=== PATIENT | female | born 1995 | race Caucasian/White ===

== ENCOUNTER 2020-04-01 10:39 | Emergency (ER) | payer SELFPAY ==
[2020-04-01 11:00] LABS: ABSOLUTE BASOPHILS # (AUTO) 0.1 10^3/uL (0.0-0.2); ABSOLUTE EOSINOPHILS # (AUTO) 0.1 10^3/uL (0.0-0.6); ABSOLUTE LYMPHOCYTES (AUTO) 3.9 10^3/uL (0.5-4.7); ABSOLUTE MONOCYTES (AUTO) 0.7 10^3/uL (0.1-1.4); ABSOLUTE NEUT (AUTO) 10.4 10^3/uL (1.7-8.2); BASOPHILS % (AUTO) 0.3 % (0-2); EOSINOPHILS % (AUTO) 0.6 % (0-6); HEMATOCRIT 36.1 % (36.0-47.0); HEMOGLOBIN 12.1 g/dL (12.0-15.5); LYMPHOCYTES % (AUTO) 25.5 % (13-45); MEAN CORPUSCULAR HGB CONC 33.4 g/dL (32.0-36.0); MEAN CORPUSCULAR VOLUME 81 fl (80-97); MONOCYTES % (AUTO) 4.6 % (3-13); PLATELET COUNT 447 10^3/uL (150-450); RED BLOOD COUNT 4.47 10^6/uL (3.72-5.28); RED CELL DISTRIBUTION WIDTH 15.2 % (11.5-14.0); TOTAL CELLS COUNTED % (AUTO) 100 %; WHITE BLOOD COUNT 15.1 10^3/uL (4.0-10.5)
[2020-04-01 11:19] LABS: ALBUMIN 4.2 g/dL (3.5-5.0); ALKALINE PHOSPHATASE 80 U/L (38-126); ANION GAP 10 (5-19); ASPARTATE AMINO TRANSFERASE 23 U/L (14-36); BILIRUBIN,TOTAL 0.8 mg/dL (0.2-1.3); BLOOD UREA NITROGEN 7 mg/dL (7-20); CALCIUM 9.7 mg/dL (8.4-10.2); CARBON DIOXIDE 19 mmol/L (22-30); CHLORIDE 107 mmol/L (98-107); CREATINE KINASE 146 U/L (30-135); GLUCOSE 91 mg/dL (75-110); TOTAL PROTEIN 7.7 g/dL (6.3-8.2)
[2020-04-01 11:32] LABS: INTERNATIONAL RATION (INR) 1.06; PROTHROMBIN TIME 13.8 SEC (11.4-15.4)
[2020-04-01 11:35] LABS: D-DIMER 0.45 ug/mL (0.00-0.50)
[2020-04-01 11:37] LABS: CREATINE KINASE MB 0.55 ng/mL (<4.55)
--- NOTE | 2020-04-01 11:38 | RADIOLOGY REPORT (SQ) ---
EXAM DESCRIPTION: CHEST SINGLE VIEW IMAGES COMPLETED DATE/TIME: 04/01/2020 11:28 am REASON FOR STUDY: chest pain, SOB COMPARISON: None. EXAM PARAMETERS: NUMBER OF VIEWS: One view. TECHNIQUE: Single frontal radiographic view of the chest acquired. RADIATION DOSE: NA LIMITATIONS: None. FINDINGS: LUNGS AND PLEURA: No opacities, masses or pneumothorax. No pleural effusion. MEDIASTINUM AND HILAR STRUCTURES: No masses. Contour normal. HEART AND VASCULAR STRUCTURES: Borderline cardiomegaly. Normal vasculature. BONES: No acute findings. HARDWARE: None in the chest. OTHER: No other significant finding. IMPRESSION: 1. No acute pulmonary findings. 2. Borderline cardiomegaly. No evidence for failure. TECHNICAL DOCUMENTATION: JOB ID: [id number] 2010 [employer]- All Rights Reserved Reading location - IP/workstation name: [email or web address]
[2020-04-01 11:40] LABS: TROPONIN I < 0.012 ng/mL
[2020-04-01] MEDS ORDERED: LIDOCAINE 2% VISCOUS SOLN 15 ML UDCUP PO ONE (11:43)
[2020-04-01] MEDS ORDERED: PROCHLORPERAZINE MALEATE 10 MG TABLET PO ONE (11:43)
[2020-04-01] MEDS ORDERED: MAG HYDROX/AL HYDROX/SIMETH SUSP 30 ML UDCUP PO ONE (11:43)
--- NOTE | 2020-04-01 12:34 | ER Document Report ---
Entered by ANANTH RICO SCRIBE 04/01/20 1118 Acting as scribe for:SCAR RODRIGUEZ MD ED General - General Chief Complaint: Chest Pain Stated Complaint: SHORTNESS OF BREATH Time Seen by Provider: 04/01/20 11:12 Primary Care Provider: [facility] [Provider Group] - Follow up in 3-5 days Mode of Arrival: Ambulatory Information source: Patient Notes: This 25 year old female patient presents to the emergency department today com plaining of shortness of breath, chest pain, vomiting, a headache, and abdominal pain which she associates with marijuana that she smoked yesterday just prior to these symptoms beginning. Patient mentions a history of possible PE but when reviewing history with the patient this does not seem to be accurate. Patient had an abnormal V/Q scan in October 2019 in [place], a follow-up CTA was performed without emboli and and she was not anticoagulated. Patient states that it does not hurt when she b reathes today. - Related Data Allergies/Adverse Reactions: ibuprofen Allergy (Verified 04/01/20 13:24) iodine Allergy (Verified 04/01/20 10:56) Past Medical History - General Information source: Patient - Social History Smoking Status: Current Every Day Smoker Cigarette use (# per day): Yes Frequency of alcohol use: Social Drug Abuse: Marijuana Lives with: Family Family History: Reviewed & Not Pertinent Patient has homicidal ideation: No Pulmonary Medical History: Reports: Other - Abnormal VQ scan in Oct 2019 followed up with a negative CTA Surgical Hx: Negative Review of Systems - Review of Systems Constitutional: No symptoms reported EENT: No symptoms reported Cardiovascular: No symptoms reported Respiratory: See HPI, Short of breath. denies: Hurts to breathe Gastrointestinal: See HPI, Abdominal pain, Vomiting Genitourinary: No symptoms reported Female Genitourinary: See HPI, Last menstrual period - 03/11 Musculoskeletal: No symptoms reported Skin: No symptoms reported Hematologic/Lymphatic: No symptoms reported Neurological/Psychological: See HPI, Headaches -: Yes All other systems reviewed and negative Physical Exam - Vital signs Vitals: Temp Pulse Resp BP Pulse Ox 98.6 F 63 22 H 126/83 H 98 04/01/20 10:52 04/01/20 10:52 04/01/20 10:52 04/01/20 10:52 04/01/20 10:52 - Notes Notes: Physical Exam: General: Alert, appears well. HEENT: Normocephalic. Atraumatic. PERRL. Extraocular movements intact. Oropharynx clear. Neck: Supple. Posterior cervical musculature tenderness to palpation right greater than left. Respiratory: No respiratory distress. Clear and equal breath sounds bilaterally. Anterior chest wall tenderness to palpation. Cardiovascular: Regular rate and rhythm. Abdominal: Obese, mild epigastric tendnerness to palpation. No distension. Normal Bowel Sounds. Back: No gross abnormalities. Extremities: Moves all four extremities. Upper extremities: Normal inspection. Normal ROM. Lower extremities: Normal inspection. No edema. Normal ROM. Neurological: Normal cognition. AAOx4. Normal speech. Psychological: Normal affect. Normal Mood. Skin: Warm. Dry. Normal color. Course - Re-evaluation Re-evalutation: 04/01/20 13:12 At this time the patient states the GI cocktail did not help her upper abdomen discomfort at all, and states it caused the rest of her abdomen to start hurting. She is now sitting up on the bed and rocking back and forth. Reexam shows diffuse tenderness throughout her abdomen including the previously tender epigastric region. Patient denies history of previous episodes of abdominal cramps, pain, and throwing up. 04/01/20 20:[address] scan of the abdomen and pelvis suggest a cecal mass and some nonspecific lymph node inflammation(see the report) I suspect the patient's elevated WBC count on presentation was related to the nausea and vomiting, as there is no CT findings to suggest an infectious process that would cause a leukocytosis. - Vital Signs Vital signs: Temp Pulse Resp BP Pulse Ox 98.6 F 63 22 H 126/83 H 98 04/01/20 10:57 04/01/20 10:52 04/01/20 10:52 04/01/20 10:52 04/01/20 10:52 - Laboratory Result Diagrams: 04/01/20 10:50 04/01/20 10:50 Laboratory results interpreted by me: 04/01/20 04/01/20 10:50 10:50 WBC 15.1 H RDW 15.2 H Absolute Neuts (auto) 10.4 H Sodium 135.6 L Carbon Dioxide 19 L Creatine Kinase 146 H - Diagnostic Test Radiology reviewed: Image reviewed, Reports reviewed - Chest x-ray shows borderline cardiomegaly, otherwise unremarkable. Noncontrast CT scan of the abdomen pelvis shows suspected short segment ileocolic intussusception. Orflorentino contrast CT scan abdomen pelvis shows a soft tissue masslike density suggested within the lumen of the cecum. - EKG Interpretation by Me EKG shows normal: Sinus rhythm, Muse, Intervals, QRS Complexes, ST-T Waves Rate: Normal - 57 Rhythm: NSR - Consults Dr. Calle Time consulted: 15:20 Consulted provider: will come to ER Discharge - Discharge Clinical Impression: Cecum mass, Tension headache Nausea and vomiting Qualifiers: Vomiting type: unspecified Vomiting Intractability: non-intractable Qualified Code(s): R11.2 - Nausea with vomiting, unspecified Abdominal pain Qualifiers: Abdominal location: generalized Qualified Code(s): R10.84 - Generalized abdominal pain Condition: Stable Disposition: HOME, SELF-CARE Additional Instructions: Your evaluation today showed the appearance of a soft tissue mass in the first part of the large intestine called the cecum. This should be further evaluated by colonoscopy. Your other symptoms included tension headache, and nausea and vomiting. You should stay on a light diet with plenty of fluids for the next few days. [facility] staff should call you tomorrow to set up an appointment to schedule your colonoscopy. Call the office tomorrow afternoon if you have not heard from them. RETURN TO THE EMERGENCY ROOM IF ANY NEW OR WORSENING SYMPTOMS. Referrals: [facility] [Provider Group] - Follow up in 3-5 days I personally performed the services described in the documentation, reviewed and edited the documentation which was dictated to the scribe in my presence, and it accurately records my words and actions.
[2020-04-01] MEDS ORDERED: NORMAL SALINE 1000 ML 1,000 ML IV ONE (13:13)
[2020-04-01] MEDS ORDERED: ONDANSETRON HCL INJ/PF 4 MG/2 ML SDV IV ONE (13:13)
[2020-04-01] MEDS ORDERED: PANTOPRAZOLE SODIUM 40 MG VIAL IV ONE (13:14)
--- NOTE | 2020-04-01 14:15 | RADIOLOGY REPORT (SQ) ---
EXAM DESCRIPTION: CT ABD/PELVIS NO ORAL OR IV IMAGES COMPLETED DATE/TIME: 04/01/2020 1:37 pm REASON FOR STUDY: Diffuse abdominal pain with nausea and vomiting COMPARISON: None. TECHNIQUE: CT scan of the abdomen and pelvis performed without intravenous or oral contrast. Images reviewed with lung, soft tissue, and bone windows. Reconstructed coronal and sagittal MPR images revi ewed. All images stored on PACS. All CT scanners at this facility use dose modulation, iterative reconstruction, and/or weight based d osing when appropriate to reduce radiation dose to as low as reasonably achievable (ALARA). [facility]: Dose Right [facility]: CareDose [facility]: Dose Right [facility]: Teradose 4D [facility]: [employer] RADIATION DOSE: mGy. LIMITATIONS: None. FINDINGS: LOWER CHEST: No significant findings. No nodules or infiltrates. NON-CONTRASTED LIVER, SPLEEN, ADRENALS: Evaluation limited by lack of IV contrast. No identified sign ificant masses. PANCREAS: No masses. No peripancreatic inflammatory changes. GALLBLADDER: Surgically absent. RIGHT KIDNEY AND URETER: No suspicious masses. Assessment limited by lack of IV contrast. No signif icant calcifications. No hydronephrosis or hydroureter. LEFT KIDNEY AND URETER: No suspicious masses. Assessment limited by lack of IV contrast. No signifi cant calcifications. No hydronephrosis or hydroureter. AORTA AND RETROPERITONEUM: No aneurysm. No retroperitoneal mass. Shotty mesenteric retroperitoneal nodes without discrete adenopathy. BOWEL AND PERITONEAL CAVITY: Apparent short-segment ileocolic intussusception. No evidence of intest inal obstruction. No free intraperitoneal gas. Trace free fluid within the pelvis, likely physiolog ic. APPENDIX: Normal. PELVIS, BLADDER, AND ABDOMINAL WALL:Decompressed urinary bladder. No pelvic adenopathy or mass. BONES: No significant findings. OTHER: No other significant finding. IMPRESSION: 1. Apparent short-segment ileocolic intussusception which can often be an incidental fi nding. Recommend correlation with patient symptoms. No evidence of intestinal obstruction. 2. No other evidence of acute intra-abdominal/pelvic process. COMMENT: Quality ID # 436: Final reports with documentation of one or more dose reduction techniques (e.g., Automated exposure control, adjustment of the mA and/or kV according to patient size, use of iterative reconstruction technique) TECHNICAL DOCUMENTATION: JOB ID: [id number] [employer]- All Rights Reserved Reading location - IP/workstation name: [email or web address]
--- NOTE | 2020-04-01 17:07 | PDOC CONSULTATION ---
Consultation Consult Date: 04/01/20 Attending physician:: SCAR sorenson Provider Consulted: BRADLEY MCFADDEN Consult reason:: Abdominal pain History of Present Illness History of Present Illness: INDRA FRANK is a 25 year old female Presents to the emergency department via ground rescue complaining of acute onset headache, nausea, chest tightness, shortness of breath and anorexia after smoking marijuana yesterday. Patient was seen via ground rescue, brought to the emergency department early this morning where she was found to have stable vital signs. She was not hypoxic and hemodynamically stable. She was given GI cocktail without clinical improvement she also received Zofran. She had a CT scan of the abdomen and pelvis without oral or IV contrast and this showed possible small segment intussusception of the terminal ileum into the right colon. Pressure was consulted. Patient states she feels better, no anorexia nausea but still having some abdominal pain. Past Medical History Past Medical History: Alleged history of PE based on VQ scan, subsequently redacted following surveillance CT scan which was negative. This was in October 2019 Pulmonary Medical History: Reports: Other - Abnormal VQ scan in Oct 2019 followed up with a negative CTA Past Surgical History Past Surgical History: Cholecystectomy Past Surgical History: Reports: Cholecystectomy Social History Lives with: Family Smoking Status: Current Every Day Smoker Electronic Cigarette use?: Yes Family History Family History: None, Reviewed & Not Pertinent Parental Family History Reviewed: No Children Family History Reviewed: No Sibling(s) Family History Reviewed.: No Medication/Allergy Allergies/Adverse Reactions: ibuprofen Allergy (Verified 04/01/20 13:24) iodine Allergy (Verified 04/01/20 10:56) Review of Systems Constitutional: PRESENT: as per HPI Eyes: ABSENT: visual disturbances Ears: ABSENT: hearing changes Cardiovascular: PRESENT: as per HPI Gastrointestinal: PRESENT: as per HPI Genitourinary: ABSENT: dysuria, hematuria Musculoskeletal: ABSENT: joint swelling Integumentary: ABSENT: rash, wounds Neurological: ABSENT: abnormal gait, abnormal speech, confusion, dizziness, focal weakness, syncope Endocrine: ABSENT: cold intolerance, heat intolerance, polydipsia, polyuria Physical Exam Vital Signs: Temp Pulse Resp BP Pulse Ox 98.6 F 63 22 H 126/83 H 98 04/01/20 10:57 04/01/20 10:52 04/01/20 10:52 04/01/20 10:52 04/01/20 10:52 Intake & Output 03/31/20 04/01/20 04/02/20 06:59 06:59 06:59 Intake Total 1000 Balance 1000 Weight 108.862 kg General appearance: PRESENT: no acute distress Head exam: PRESENT: atraumatic Eye exam: PRESENT: EOMI Ear exam: PRESENT: normal external ear exam Mouth exam: PRESENT: dry mucosa Neck exam: PRESENT: full ROM Respiratory exam: PRESENT: clear to auscultation kasie Cardiovascular exam: PRESENT: RRR Pulses: PRESENT: normal carotid pulses, normal radial pulses, normal femoral pulses GI/Abdominal exam: PRESENT: soft - Soft but tender right lower quadrant with minimal guarding to deep palpation. No peritoneal signs no rigidity. Rectal exam: PRESENT: deferred Extremities exam: PRESENT: full ROM Musculoskeletal exam: PRESENT: full ROM Neurological exam: PRESENT: oriented to person, oriented to place, oriented to time, oriented to situation Psychiatric exam: PRESENT: appropriate affect Skin exam: PRESENT: dry Results Laboratory Results: 04/01/20 10:50 04/01/20 10:50 04/01/20 04/01/20 04/01/20 10:50 10:50 10:50 WBC 15.1 H RBC 4.47 Hgb 12.1 Hct 36.1 MCV 81 MCH 27.0 MCHC 33.4 RDW 15.2 H Plt Count 447 Seg Neutrophils % 69.0 Sodium 135.6 L Potassium 4.0 Chloride 107 Carbon Dioxide 19 L Anion Gap 10 BUN 7 Creatinine 0.74 Est GFR ( Amer) > 60 Glucose 91 Calcium 9.7 Total Bilirubin 0.8 AST 23 Alkaline Phosphatase 80 Total Protein 7.7 Albumin 4.2 Serum HCG, Qual NEGATIVE 04/01/20 04/01/20 04/01/20 10:50 10:50 13:31 Creatine Kinase 146 H CK-MB (CK-2) 0.55 Troponin I < 0.012 < 0.012 Impressions: Chest X-Ray 04/01/20 10:56 IMPRESSION: 1. No acute pulmonary findings. 2. Borderline cardiomegaly. No evidence for failure. Abdomen/Pelvis CT 04/01/20 13:15 IMPRESSION: 1. Apparent short-segment ileocolic intussusception which can often be an incidental finding. Recommend correlation with patient symptoms. No evidence of intestinal obstruction. 2. No other evidence of acute intra-abdominal/pelvic process. Assessment & Plan - Diagnosis (1) Abdominal pain Is this a current diagnosis for this admission?: Yes Plan: Impression: Unusual presentation of headache, chest pain, nausea, anorexia, abdominal tenderness, leukocytosis and CT scan suggesting ileocolonic intussusception in an otherwise healthy 25-year-old female. The patient does not have an acute abdomen at this time. Recommendations: 1. I reviewed the imaging studies with the emergency department and radiologist. The abnormality involving the ileocolonic area to be an incidental finding or may be pathologic; there are several lymph nodes noted in the region. She may have a physiologic intussusception. Currently no evidence of sepsis, acute abdomen, in need of emergent exploration. 2. Patient seems to be feeling better. I suggest we get a CT scan with oral contrast to better delineate this area. The oral contrast may serve as a cathartic and open this area up. If not, patient may require admission, and exploratory surgery. 3. I have discussed the above with the patient. She is willing to stay here in the emergency department for further evaluation. (2) Obesity Is this a current diagnosis for this admission?: Yes (3) Smoker Is this a current diagnosis for this admission?: Yes (4) Leukocytosis Is this a current diagnosis for this admission?: Yes - Time Time Spent: 30 to 50 Minutes Smoking Cessation Education: over 10 minutes Medications reviewed and adjusted accordingly: Yes Anticipated discharge: Home
--- NOTE | 2020-04-01 19:07 | RADIOLOGY REPORT (SQ) ---
EXAM DESCRIPTION: CT ABD/PELVIS ORAL ONLY IMAGES COMPLETED DATE/TIME: 04/01/2020 6:36 pm REASON FOR STUDY: Suspect ileocolic intussusception COMPARISON: 04/01/2020 TECHNIQUE: CT scan of the abdomen and pelvis performed without intravenous or oral contrast. Images reviewed with lung, soft tissue, and bone windows. Reconstructed coronal and sagittal MPR images revi ewed. All images stored on PACS. All CT scanners at this facility use dose modulation, iterative reconstruction, and/or weight based d osing when appropriate to reduce radiation dose to as low as reasonably achievable (ALARA). [facility]: Dose Right [facility]: CareDose [facility]: Dose Right [facility]: Teradose 4D [facility]: [employer] RADIATION DOSE: CT Rad equipment meets quality standard of care and radiation dose reduction techniq ues were employed. CTDIvol: 18.7 mGy. DLP: 1065 mGy-cm. LIMITATIONS: None. FINDINGS: LOWER CHEST: Minimal pleural nodularity in the lower hemithoraces. NON-CONTRASTED LIVER, SPLEEN, ADRENALS: Evaluation limited by lack of IV contrast. No identified sign ificant masses. PANCREAS: No masses. No peripancreatic inflammatory changes. GALLBLADDER: Prior cholecystectomy. RIGHT KIDNEY AND URETER: No suspicious masses. Assessment limited by lack of IV contrast. No signif icant calcifications. No hydronephrosis or hydroureter. LEFT KIDNEY AND URETER: No suspicious masses. Assessment limited by lack of IV contrast. No signifi cant calcifications. No hydronephrosis or hydroureter. AORTA AND RETROPERITONEUM: Several nonenlarged mesenteric and retroperitoneal lymph nodes. BOWEL AND PERITONEAL CAVITY: The colon is incompletely distended with oral contrast limiting the exa mination somewhat. As best noted on axial images 55-57, series 3, soft tissue mass-like density sugg ested within the lumen of the cecum--ascending colon. No evidence of obstruction. This area does no t demonstrate a telescoping type of appearance. The cecum is unremarkable in appearance. The append ix is opacified with contrast and is unremarkable in appearance. No free fluid. APPENDIX: Normal. PELVIS, BLADDER, AND ABDOMINAL WALL: Very small fat containing periumbilical hernia. No free fluid. Bladder normal. BONES: No significant findings. OTHER: Borderline to mildly prominent bilateral superficial femoral triangle lymph nodes. IMPRESSION: 1. The colon is incompletely distended with oral contrast limiting the examination some what. Soft tissue mass-like density is suggested within the lumen of the cecum--ascending colon. Th e possibility of underlying mass is not entirely excluded. Clinical correlation correlation and wesley elation with colonoscopy suggested. (The results of this examination were discussed with the general surgeon on 04/01/2020 at 18:55 hours). 2. Several non-enlarged mesenteric and retroperitoneal lymph nodes. Borderline to mildly prominent bilateral superficial femoral triangle lymph nodes. Considerations for these findings include possib le inflammatory/infectious etiologies, with other underlying pathology not entirely excluded. 3. Additional findings as above. COMMENT: Quality ID # [id number]: Final reports with documentation of one or more dose reduction techniques (e.g., Automated exposure control, adjustment of the mA and/or kV according to patient size, use of iterative reconstruction technique) TECHNICAL DOCUMENTATION: JOB ID: [id number] 2010 [employer]- All Rights Reserved Reading location - IP/workstation name: [email or web address]
[2020-04-01 21:17] VITALS: BP 139/85
== END 2020-04-01 20:35 | disposition home or self-care (01) ==
LOC: ER 10:39
DX: G44.209 Tension-type headache, unspecified, not intractable (principal); K63.9 Disease of intestine, unspecified; R10.84 Generalized abdominal pain; R11.2 Nausea with vomiting, unspecified; R07.9 Chest pain, unspecified; R06.02 Shortness of breath; R10.9 Unspecified abdominal pain; F12.10 Cannabis abuse, uncomplicated; Z88.8 Allergy status to other drugs, medicaments and biological substances; F17.210 Nicotine dependence, cigarettes, uncomplicated
CPT/HCPCS: 99285; 96361; 96374; 96375; 36415; 82553; 82550; 84703; 85025; 85610; 80053; 84484; 85379; 71045; 74176; J3490; C9113; S0183; J2405; J7030

== ENCOUNTER 2020-04-27 10:14 | Emergency (ER) | payer SELFPAY | END 2020-04-27 10:54 | disposition left against medical advice (07) | LOC: ER 10:14 | DX: Z53.21 Procedure and treatment not carried out due to patient leaving prior to being seen by health care provider (principal) ==

== ENCOUNTER 2020-07-28 11:43 | Emergency (ER) | payer OTHER ==
[2020-07-28 11:52] VITALS: BP 123/67
[2020-07-28] MEDS ORDERED: METHYLPREDNISOLONE INJ 125 MG/2 ML SDV IM ONE (12:19)
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
== END 2020-07-28 12:30 | disposition home or self-care (01) ==
LOC: ER 11:43
DX: M54.32 Sciatica, left side (principal); M62.830 Muscle spasm of back; M54.9 Dorsalgia, unspecified; F17.200 Nicotine dependence, unspecified, uncomplicated; F12.10 Cannabis abuse, uncomplicated; Z87.828 Personal history of other (healed) physical injury and trauma; Z98.890 Other specified postprocedural states
CPT/HCPCS: 99284; 96372; J2930

== ENCOUNTER 2020-08-05 02:01 | Emergency (ER) | payer OTHER ==
[2020-08-05] MEDS ORDERED: FAMOTIDINE INJ/PF 20 MG/2 ML SDV IV ONE (02:32)
[2020-08-05] MEDS ORDERED: ONDANSETRON HCL INJ/PF 4 MG/2 ML SDV IV ONE (02:32)
[2020-08-05] MEDS ORDERED: NORMAL SALINE 1000 ML 1,000 ML IV ONE (02:32)
[2020-08-05 03:07] LABS: ALKALINE PHOSPHATASE 71 U/L (38-126); ANION GAP 11 (5-19); ASPARTATE AMINO TRANSFERASE 24 U/L (14-36); BILIRUBIN,DIRECT 0.2 mg/dL (0.0-0.4); BILIRUBIN,TOTAL 0.4 mg/dL (0.2-1.3); BLOOD UREA NITROGEN 9 mg/dL (7-20); CALCIUM 9.2 mg/dL (8.4-10.2); CARBON DIOXIDE 23 mmol/L (22-30); CHLORIDE 107 mmol/L (98-107); GLUCOSE 108 mg/dL (75-110); POTASSIUM 3.7 mmol/L (3.6-5.0)
[2020-08-05 03:22] LABS: HEMATOCRIT 33.3 % (36.0-47.0); MEAN CORPUSCULAR HEMOGLOBIN 26.8 pg (27.0-33.4); MEAN CORPUSCULAR HGB CONC 33.1 g/dL (32.0-36.0); MEAN CORPUSCULAR VOLUME 81 fl (80-97); PLATELET COUNT 414 10^3/uL (150-450); RED BLOOD COUNT 4.11 10^6/uL (3.72-5.28); RED CELL DISTRIBUTION WIDTH 15.2 % (11.5-14.0); WHITE BLOOD COUNT 21.9 10^3/uL (4.0-10.5)
[2020-08-05 03:36] LABS: ABSOLUTE MONOCYTES # (MANUAL) 0.4 10^3/uL (0.1-1.4); BASOPHILS % (MANUAL) 1 % (0-2); EOSINOPHILS % (MANUAL) 0 % (0-6); LYMPHOCYTES % (MANUAL) 41 % (13-45); MONOCYTES % (MANUAL) 2 % (3-13); SEGMENTED NEUTROPHILS % (MAN) 56 % (42-78); TOTAL CELLS COUNTED 100
[2020-08-05 03:38] LABS: ANISOCYTOSIS SLIGHT; OVALOCYTES SLIGHT; PLATELET COMMENT ADEQUATE; POIKILOCYTOSIS SLIGHT; TOXIC GRANULATION SLIGHT
--- NOTE | 2020-08-05 04:16 | ER Document Report ---
ED GI/ - General Chief Complaint: Nausea/Vomiting Stated Complaint: NAUSEA/VOMITNG FROM DRINKING Time Seen by Provider: 08/05/20 02:31 Mode of Arrival: Ambulatory Information source: Patient Notes: Otherwise healthy 25-year-old female presented to the emergency department with complaints of nausea and vomiting after drinking alcohol. Patient reports she stopped drinking yesterday at 5 PM. She states she went to sleep without issue but woke up vomiting. She denies any fever, chills or abdominal pain. She states she makes multiple types of liquor together. She states this has happen ed before. TRAVEL OUTSIDE OF THE [place] IN LAST 30 DAYS: No - Related Data Allergies/Adverse Reactions: ibuprofen Allergy (Verified 04/01/20 13:24) iodine Allergy (Verified 04/01/20 10:56) Home Medications: seroquel. welbutrin Past Medical History - General Information source: Patient - Social History Smoking Status: Former Smoker Chew tobacco use (# tins/day): No Frequency of alcohol use: Heavy Drug Abuse: Marijuana Family History: Reviewed & Not Pertinent Patient has homicidal ideation: No Psychiatric Medical History: Reports: Hx Bipolar Disorder, Hx Depression Past Surgical History: Reports: Hx Cholecystectomy, Hx Orthopedic Surgery - back Review of Systems - Review of Systems Gastrointestinal: Nausea, Vomiting -: Yes All other systems reviewed and negative Physical Exam - Vital signs Vitals: Pulse Resp BP Pulse Ox 90 15 143/121 H 100 08/05/20 02:05 08/05/20 02:05 08/05/20 02:05 08/05/20 02:05 - Notes Notes: PHYSICAL EXAMINATION: GENERAL: Well-appearing, well-nourished and in no acute distress. HEAD: Atraumatic, normocephalic. EYES: Pupils equal round and reactive to light, extraocular movements intact, conjunctiva are normal. ENT: Nares patent, oropharynx clear without exudates. Moist mucous membranes. NECK: Normal range of motion, supple without lymphadenopathy LUNGS: Breath sounds clear to auscultation bilaterally and equal. No wheezes rales or rhonchi. HEART: Regular rate and rhythm without murmurs ABDOMEN: Soft, nontender, nondistended abdomen. No guarding, no rebound. No masses appreciated. Female : deferred Musculoskeletal: Normal range of motion, no pitting or edema. No cyanosis. NEUROLOGICAL: Cranial nerves grossly intact. Normal speech, normal gait. Normal sensory, motor exams PSYCH: Normal mood, normal affect. SKIN: Warm, Dry, normal turgor, no rashes or lesions noted. Course - Vital Signs Vital signs: Temp Pulse Resp BP Pulse Ox 98.2 F 90 15 143/121 H 100 08/05/20 02:12 08/05/20 02:05 08/05/20 02:05 08/05/20 02:05 08/05/20 02:05 - Laboratory Result Diagrams: 08/05/20 02:30 08/05/20 02:30 Laboratory results interpreted by me: 08/05/20 02:30 WBC 21.9 H Hgb 11.0 L Hct 33.3 L MCH 26.8 L RDW 15.2 H Monocytes % (Manual) 2 L Abs Neuts (Manual) 12.3 H Abs Lymphs (Manual) 9.0 H Discharge - Discharge Clinical Impression: Nausea and vomiting Qualifiers: Vomiting type: unspecified Vomiting Intractability: unspecified Qualified Code(s): R11.2 - Nausea with vomiting, unspecified Condition: Stable Disposition: HOME, SELF-CARE Additional Instructions: You have been sent home with a dispense pack of Zofran. You may take 1 to 2 tablets every 6 hours as needed for nausea. Please make sure to hydrate today. Return if any new or worsening symptoms.
[2020-08-05] MEDS ORDERED: ONDANSETRON ODT 4 MG TAB (6 TAB/ER DISP) PO PRN (04:19)
[2020-08-05 04:29] VITALS: BP 112/53
== END 2020-08-05 05:01 | disposition home or self-care (01) ==
LOC: ER 02:01
DX: R11.2 Nausea with vomiting, unspecified (principal); F12.10 Cannabis abuse, uncomplicated; F31.9 Bipolar disorder, unspecified; Z79.899 Other long term (current) drug therapy; Z87.891 Personal history of nicotine dependence; Z88.8 Allergy status to other drugs, medicaments and biological substances
CPT/HCPCS: 99284; 96361; 96374; 96375; 36415; 83690; 85025; 80053; J2405; J7030; S0028

== ENCOUNTER 2020-09-30 02:32 | Emergency (ER) | payer OTHER ==
[2020-09-30] MEDS ORDERED: KETOROLAC TROMETHAMINE 60 MG/2 ML SDV IM ONE (03:19)
--- NOTE | 2020-09-30 03:24 | ER Document Report ---
HPI - HPI Time Seen by Provider: 09/30/20 02:49 Pain Level: 5 Context: Patient is a 25-year-old female who comes emergency department for chief complaint of right hip and right knee pain. She states this has been going on for a long time and over the past several days she has noticed more difficulty with position changes, walking on stairs, and it is starting to hurt even at rest. Patient denies any specific injury. She states her legs seem swollen a couple of days ago but does not have the swelling now. She denies redness, wounds, fever. She denies IV drug abuse. She denies history of gout. Past medical history of anxiety/depression, bipolar disorder, obesity, and chronic back pain on meloxicam reportedly. She denies any other complaints. - REPRODUCTIVE Reproductive: DENIES: : - MUSCULOSKELETAL Musculoskeletal: REPORTS: Extremity pain Past Medical History - General Information source: Patient - Social History Smoking Status: Current Every Day Smoker Frequency of alcohol use: None Lives with: Family Family History: Reviewed & Not Pertinent Patient has homicidal ideation: No Psychiatric Medical History: Reports: Hx Bipolar Disorder, Hx Depression Past Surgical History: Reports: Hx Cholecystectomy, Hx Orthopedic Surgery - back Vertical Provider Document - CONSTITUTIONAL General Appearance: WD/WN, No Apparent Distress - INFECTION CONTROL TRAVEL OUTSIDE OF THE [place] IN LAST 30 DAYS: No - HEENT HEENT: Atraumatic, Normocephalic - NECK Neck: Normal Inspection - RESPIRATORY Respiratory: Breath Sounds Normal, No Respiratory Distress - CARDIOVASCULAR Cardiovascular: Regular Rate, Regular Rhythm - GI/ABDOMEN Gastrointestinal: Abdomen Soft, Abdomen Non-Tender - BACK Back: Normal Inspection - MUSCULOSKELETAL/EXTREMETIES Musculoskeletal/Extremeties: MAEW, FROM, Tender - Patient does not have tenderness with palpation over the right knee, leg, ankle, or specifically over the hip, however she has tenderness with range of motion of the knee, positive Wilfredo test with popping noted. Normal distal neurovascular exam, no erythema, swelling, discoloration. - NEURO Level of Consciousness: Awake, Alert, Appropriate - DERM Integumentary: Warm, Dry, No Rash Course - Re-evaluation Re-evalutation: X-rays with no acute concerning findings. Exam with positive Wilfredo test and popping suggesting meniscus tear. Most likely patient is having hip pain because she is changing her gait because of her knee pain. Patient has a lot of popping when going up and down stairs reportedly. I discussed findings, recommendations, options. Patient placed in knee immobilizer, discussed orth opedic referral, discussed follow-up and return precautions. Patient states understanding and agreement. - Vital Signs Vital signs: Temp Pulse Resp BP Pulse Ox 98.3 F 77 20 126/65 H 98 09/30/20 02:38 09/30/20 02:38 09/30/20 02:38 09/30/20 02:38 09/30/20 02:38 - Laboratory Results Critical Laboratory Results Reviewed: No Critical Results - Radiology Results Critical Radiology Results Reviewed: No Critical Results Procedures - Immobilization Right knee Pre-Proc Neuro Vasc Exam: Normal Immobilizer type: Knee immobilizer Performed by: RN Post-Proc Neuro Vasc Exam: Normal Alignment checked and good: Yes Discharge - Discharge Clinical Impression: Right hip pain Right knee pain Qualifiers: Chronicity: acute Qualified Code(s): M25.561 - Pain in right knee Condition: Stable Disposition: HOME, SELF-CARE Additional Instructions: Based on the examination of your knee and your x-rays I believe your pain and symptoms are caused by a tear in the meniscus of your knee as we discussed. I recommend icing the knee 3-4 times a day for 10 to 15 minutes, using the knee immobilizer and crutches for the next several days, taking your meloxicam. This can heal but it may require additional treatment. If symptoms continue please follow-up with the orthopedics referral for additional management of this. Return for any concerning symptoms including severe worsening swelling, developing redness, severe pain, fever, or any other concerning or worsening s ymptoms. Forms: Return to Work Referrals: REBECCA LAWSON DO [ACTIVE STAFF] - Follow up in 1 week
--- NOTE | 2020-09-30 04:43 | RADIOLOGY REPORT (SQ) ---
EXAM: HIP RIGHT AP/LATERAL CLINICAL DATA: 25 years Female pain, trouble walking TECHNICAL DATA: 2 x-ray views of the pelvis and right hip were performed on 09/30/2020 at 4:16 AM. COMPARISONS: CT abdomen and pelvis performed on 04/01/2020 FINDINGS: There is no evidence of fracture or dislocation. There is no significant arthritis or degenerative change. No focal lytic or sclerotic bone lesions are seen. Bone mineralization is normal. No focal soft tissue abnormalities are identified. IMPRESSION: No evidence of acute osseous injury involving the pelvis or right hip.
--- NOTE | 2020-09-30 04:45 | RADIOLOGY REPORT (SQ) ---
EXAM: KNEE RIGHT 4 VIEWS CLINICAL DATA: 25 years Female pain, trouble walking TECHNICAL DATA: 4 x-ray views of the right knee were performed on 09/30/2020 at 4:13 AM. COMPARISONS: None FINDINGS: There is no evidence of fracture or dislocation. There is no significant arthritis or degenerative change. There is mild narrowing of the medial joint compartment. No focal lytic or sclerotic bone lesions are seen. Bone mineralization is normal. No focal soft tissue abnormalities are identified. IMPRESSION: No evidence of acute osseous injury involving the right knee. There is mild narrowing of the medial joint compartment.
[2020-09-30 05:31] VITALS: BP 147/99
== END 2020-09-30 05:31 | disposition home or self-care (01) ==
LOC: ER 02:32
DX: M25.561 Pain in right knee (principal); M25.551 Pain in right hip; F17.200 Nicotine dependence, unspecified, uncomplicated; M54.9 Dorsalgia, unspecified; G89.29 Other chronic pain; Z79.1 Long term (current) use of non-steroidal anti-inflammatories (NSAID)
CPT/HCPCS: 99284; 96372; 73502; 73564; J1885

== ENCOUNTER 2020-11-10 05:11 | Emergency (ER) | payer OTHER ==
--- NOTE | 2020-11-10 06:13 | ER Document Report ---
ED Extremity Problem, Upper - General Chief Complaint: Shoulder Pain Stated Complaint: LEFT SHOULDER PAIN Time Seen by Provider: 11/10/20 06:00 Primary Care Provider: ANNA CONNELLY MD [Primary Care Provider] - Follow up as needed Mode of Arrival: Ambulatory Information source: Patient Notes: This 25-year-old female presents to the emergency department with a complaint of left shoulder pain for the past 2 days. She denies known injury or activity that might have precipitated the pain. She has had no prior history of left shoulder difficulties. TRAVEL OUTSIDE OF THE [place] IN LAST 30 DAYS: No - Related Data Allergies/Adverse Reactions: ibuprofen Allergy (Verified 04/01/20 13:24) iodine Allergy (Verified 04/01/20 10:56) Home Medications: welbutrin, *medication for bipolar-pt can't remember name Past Medical History - Social History Smoking Status: Current Every Day Smoker Frequency of alcohol use: None Drug Abuse: None Family History: Reviewed & Not Pertinent Patient has homicidal ideation: No Psychiatric Medical History: Reports: Hx Bipolar Disorder, Hx Depression Past Surgical History: Reports: Hx Cholecystectomy, Hx Orthopedic Surgery - back Review of Systems - Review of Systems Notes: Constitutional: Negative for fever. HENT: Negative for sore throat. Eyes: Negative for visual changes. Cardiovascular: Negative for chest pain. Respiratory: Negative for shortness of breath. Gastrointestinal: Negative for abdominal pain, vomiting or diarrhea. Genitourinary: Negative for dysuria. Musculoskeletal: See HPI Skin: Negative for rash. Neurological: Negative for headaches, weakness or numbness. 10 point ROS negative except as marked above and in HPI. Physical Exam - Vital signs Vitals: Temp Pulse Resp BP Pulse Ox 98.9 F 79 20 133/85 H 100 11/10/20 05:19 11/10/20 05:19 11/10/20 05:19 11/10/20 05:19 11/10/20 05:19 - Notes Notes: PHYSICAL EXAMINATION: Physical Exam: General: Well-nourished well-developed 25-year-old female complaining of left shoulder HEENT: NC/AT, pupils equal round and reactive to light, MM moist,nares clear, oropharynx clear, airway patent Neck: supple, no adenopathy, no masses. Good range of motion Lungs: clear, no wheezing, no rales no rhonchi CVS: Regular rate and rhythm no murmur gallop or rub Abdomen: Soft, active, nontender, no masses, no hepatosplenomegaly Ext: Left upper extremity with the shoulder in a normal position. Patient states she is unable to lift the arm secondary to pain, tenderness in the anterior glenohumeral joint. No obvious deformity. No crepitus no step-off Neuro: Alert and responsive, moving all 4 extremities on command, cranial nerves intact, no focal findings Skin: Intact no open lesions, no rash PSYCH: Normal mood, normal affect. Course - Re-evaluation Re-evalutation: 11/10/20 07:48 Left shoulder x-ray is negative for fracture or dislocation. Patient has listed an allergy to ibuprofen in spite of her medication difficulties. She will be given a dose of tramadol and decadron in the emergency department. 11/10/20 08:49 - Vital Signs Vital signs: Temp Pulse Resp BP Pulse Ox 98.9 F 79 20 133/85 H 100 11/10/20 05:19 11/10/20 05:19 11/10/20 05:19 11/10/20 05:19 11/10/20 05:19 - Laboratory Results Critical Laboratory Results Reviewed: No Critical Results - Radiology Results Radiology Results Interpreted: 11/10/20 08:50 Shoulder X-Ray 11/10/20 06:06 IMPRESSION: No acute abnormality. copyright 2011 [employer]- All Rights Reserved Critical Radiology Results Reviewed: No Critical Results Discharge - Discharge Clinical Impression: Left shoulder tendonitis Condition: Good Disposition: HOME, SELF-CARE Instructions: Shoulder Injury ([facility]) Additional Instructions: You are seen in the emergency department this morning with left shoulder pain for the past few days. It appears that you have an inflammatory reaction and involving your left shoulder question of tendinitis versus arthritis is unclear. X-ray does not reveal fracture or dislocation. Treatment with anti- inflammatory medication (steroid oral) and a muscle relaxant is being given. Please take medications as prescribed Follow-up with your doctor as needed Return to the emergency department if your symptoms are worsening or if you have other concerns. Prescriptions: Tramadol HCl [Ultram 50 mg Tablet] 50 mg PO Q4HP PRN #12 tab PRN Reason: Prednisone [Deltasone 20 mg Tablet] 1 tab PO BID 5 Days #10 tablet Referrals: ANNA CONNELLY MD [Primary Care Provider] - Follow up as needed
--- NOTE | 2020-11-10 07:26 | RADIOLOGY REPORT (SQ) ---
EXAM DESCRIPTION: XR SHOULDER left three views COMPLETED DATE/TME: 11/10/2020 06:58 CLINICAL HISTORY: 25 years, Female, shoulder pain COMPARISON: None. FINDINGS: No fracture or dislocation. Soft tissues are unremarkable. IMPRESSION: No acute abnormality. copyright 2010 [employer]- All Rights Reserved
[2020-11-10] MEDS ORDERED: DEXAMETHASONE SOD PHOS INJ 10 MG/1 ML VIAL IM ONE (07:48)
[2020-11-10] MEDS ORDERED: TRAMADOL HCL 50 MG TABLET PO ONE (07:49)
[2020-11-10 09:19] VITALS: BP 127/87
--- OUTSIDE RECORDS SUMMARY | 2020-11-12 10:41 | XMS REPORT ---
:1995 [facility] [address] [place] [address] Care Team Providers Name Role Phone DebbyRea encinasmarinamilan Ruth Primary Care Physician Unavailable Karlie Attending Clinician Unavailable Allergies, Adverse Reactions, Alerts This patient has no known allergies or adverse reactions. Medications This patient has no known medications. Problems Condition Condition Condition Status Onset Resolution Last Treatin g Comments Name Details Category Date Date Treatment Clinician Date Cannabis Cannabis Problem Active 2019-0 Kristy, dependence, dependence, 6-10 Christa uncomplicat uncomplicat 00:00: ed ed 00 Generalized Generalized Problem Active 2020-0 Hermanso n, anxiety anxiety 6-10 Christa disorder disorder 00:00: 00 Bipolar Bipolar Problem Active 2020-0 Kristy, disorder, disorder, 6-10 Christa unspecified unspecified 00:00: 00 Procedures This patient has no known procedures. Results This patient has no known results. Encounters Start End Encounter Admission Attending Care Care Encounter Date/Time Date/Time Type Type Clinicians Facility Department ID 2020-09-10 2020-09-10 Non-Residen TONI [place] [facility] [place] [id number] 09:00:00 09:30:00 tial Christa [email or web address] tCancel 2020-09-03 2020-09-03 Non-Residen TONI [facility] [place] 20 [id number] 11:30:00 12:00:00 tial Judylyn [id number] 2020-09-02 2020-09-02 Non-Residen TONI [facility] [place] [id number] 15:00:00 15:30:00 tial Christa [id number] 2020-08-27 2020-08-27 Non-Residen TONI [facility] [place] [id number] 14:30:00 15:00:00 tial Christa [id number] o_Show 2020-08-13 2020-08-13 Non-Residen Kristy, [facility] [place] [id number] 14:00:00 14:45:00 tial Christa [id number] 2020-08-06 2020-08-06 Non-Residen Karlie, [facility] [place] 15:30:00 16:00:00 tial Judylyn [id number] 2020-07-30 2020-07-30 Non-Residen Kristy, [facility] [place] [id number] 14:00:00 14:30:00 tial Christa [id number] 2020-07-16 2020-07-16 Non-Residen Kristy, [facility] [place] [id number] 14:00:00 14:30:00 tial Christa [id number] 2020-07-02 2020-07-02 Non-Residen Micaelaa, [facility] [place] 2 [id number] 14:00:00 15:00:00 tial Christa [id number] 2020-07-02 2020-07-02 Non-Residen Karlie, [facility] [place] 13:00:00 14:00:00 tial Judylyn [id number] 2020-06-18 2020-06-18 Non-Residen Britney, [facility] [place] 2 [id number] 14:00:00 15:00:00 tial Christa [id number] 2020-06-04 2020-06-04 Non-Residen Britney, [facility] [place] 2 [id number] 14:00:00 15:00:00 tial Christa [id number] 2020-05-24 2020-05-24 Non-Residen Micaelaa, [facility] [place] 2 [id number] 08:00:00 08:30:00 tial Christa [id number] 2020-05-14 2020-05-14 Non-Residen Britney, [facility] [place] 2 [id number] 08:30:00 09:15:00 tial Christa [id number] 2020-05-10 2020-05-10 Non-Residen Britney [facility] [place] 2 [id number] 08:00:00 08:30:00 tial Christa [email or web address] o_Show 2020-04-23 2020-04-23 Non-Residen Britney [facility] [place] 2 [id number] 08:30:00 09:00:00 tial Christa [id number] 2020-04-10 2020-04-10 Non-Residen Britney [facility] [place] 2 [id number] 12:03:00 12:06:00 tial Christa [id number] 2020-04-08 2020-04-08 Non-Residen Britney [facility] [place] 2 [id number] 13:00:00 14:00:00 tial Christa [id number] 2020-03-27 2020-03-27 Non-Residen Britney [facility] [place] 2 [id number] 13:00:00 15:00:00 tial Christa [id number] Social History This patient has no known social history. Vital Signs This patient has no known vital signs.
== END 2020-11-10 09:20 | disposition home or self-care (01) ==
LOC: ER 05:11
DX: M75.22 Bicipital tendinitis, left shoulder (principal); M25.512 Pain in left shoulder; Z88.8 Allergy status to other drugs, medicaments and biological substances; Z79.899 Other long term (current) drug therapy; F17.200 Nicotine dependence, unspecified, uncomplicated
CPT/HCPCS: 99284; 96372; 73030; J1100